=== PATIENT | female | born 1935 | race Caucasian/White ===

== ENCOUNTER 2019-03-11 05:51 | Inpatient (IN) ==
[~2019-03-11 05:51] MED LIST: LIDOCAINE W/ SODIUM BICARB 0.5 ML SYR ONE; Lactated Ringers 1,000 ML PRIMARY IV ONE; ceFAZolin Inj 2gm (Premix) 2 GM/50 ML BAG IV ONE
[2019-03-11] MEDS ORDERED: Vancomycin 1 gm (Premix) 1 GM/200 ML PIGGYBACK IV ONE ×2 (05:53→06:00)
[2019-03-11] MEDS ORDERED: Nasal Sanitizer POPSWAB ampule 3 AMP (Nozin) PREOP DOSE ENOS SCH (06:00)
[2019-03-11] MEDS ORDERED: ceFAZolin Inj 2gm (Premix) 2 GM/50 ML BAG IV ONE (06:00)
[2019-03-11] MEDS ORDERED: Vancomycin-PHA to Dose IV PRN ×2 (06:00→19:20)
[2019-03-11] MEDS ORDERED: LIDOCAINE W/ SODIUM BICARB 0.5 ML SYR SUBD ONE (06:00)
[2019-03-11] MEDS ORDERED: Lactated Ringers 1,000 ML PRIMARY IV ONE ×2 (06:00→18:12)
[2019-03-11 06:19] LABS: BILIRUBIN,URINE NEGATIVE (NEG); CLARITY,URINE CLEAR (CLEAR); COLOR,URINE YELLOW (Y); GLUCOSE, URINE (UA) NEGATIVE (NEG); OCCULT BLOOD,URINE NEGATIVE (NEG); PH,URINE 5.5 (5.0-8.5); PROTEIN,URINE NEGATIVE (NEG); UROBILINOGEN,URINE 0.2 EU/dL (0.2)
[2019-03-11 06:20] LABS: URINE SAMPLE TYPE CLEAN CATCH URINE
[2019-03-11] MEDS ORDERED: BUPivacaine Inj 0.25% PF - 10ml vial ONE (06:55)
[2019-03-11] MEDS ORDERED: Sodium Chloride 0.9% vial 40 ML ONE (06:55)
[2019-03-11] MEDS ORDERED: BUPIVACAINE 0.25% W/ EPI - 10 ML VIAL ONE (06:55)
[2019-03-11] MEDS ORDERED: BACITRACIN 50,000 UNIT VIAL IRRIG ONE ×2 (06:56→14:05)
[2019-03-11] MEDS ORDERED: Vancomycin Inj 1gm vial ONE (06:56)
[2019-03-11] MEDS ORDERED: Gentamicin Inj 40 MG/ML VIAL ONE (06:56)
[2019-03-11] MEDS ORDERED: BUPivacaine Liposome/PF (Exparel) Inj 20ml vial INFIL ONE (06:56)
[2019-03-11] MEDS ORDERED: Hetastarch 6% + NS 1,000 ML IV ONE (07:26)
[2019-03-11] MEDS ORDERED: HYDROmorphone 2 MG/1 ML ONE ×2 (07:31→09:21)
[2019-03-11] MEDS ORDERED: SUCCINYLCHOLINE CHLORIDE 20 MG/1 ML - 10 ML ONE (07:36)
[2019-03-11] MEDS ORDERED: ROCURONIUM 10 MG/1 ML - 5 ML VIAL IVP ONE (07:36)
[2019-03-11] MEDS ORDERED: Sodium Chloride 0.9% 500 ML ONE ×2 (07:49→15:11)
[2019-03-11] MEDS ORDERED: HEPARIN 5000 UNIT/1 ML ONE (07:49)
[2019-03-11] MEDS ORDERED: METOPROLOL TARTRATE 5 MG/5 ML VIAL ONE (08:46)
[2019-03-11] MEDS ORDERED: LIDOCAINE HCL 2 % 10 ML JELLY URO-JECT TOPICAL PRN (09:52)
[2019-03-11] MEDS ORDERED: PROPOFOL 10 MG/1 ML (200 MG/20 ML) VIAL IV ONE (10:02)
[2019-03-11] MEDS ORDERED: Sodium Chloride 0.9% vial 30 ML ONE (14:05)
[2019-03-11 15:41] LABS: ABG BASE EXCESS -5 MMOL/L (-2-2); ABG OXYGEN SATURATION 100 % (90-100); ABG PCO2 26 MMHG (34-38); ABG PH 7.47 (7.35-7.45); ABG PO2 212 MMHG (65-75)
[2019-03-11 15:45] LABS: COLLECTION SITE R ARTERIAL LINE
[2019-03-11] MEDS ORDERED: Prochlorperazine Edisylate Inj 10mg/2ml vial IVP PRN ×2 (18:18→19:20)
[2019-03-11] MEDS ORDERED: LIDOCAINE W/ SODIUM BICARB 0.5 ML SYR SUBD PRN (18:18)
[2019-03-11 18:34] LABS: Hematocrit [HCT] 31.6 % (37.0-47.0)
[2019-03-11] MEDS ORDERED: fentaNYL Inj 100 MCG/2 ML VIAL ONE (18:46)
[2019-03-11] MEDS: fentaNYL Inj 100 MCG/2 ML VIAL IVP PRN ×2 (18:46→19:04)
[2019-03-11 18:48] LABS: BLOOD UREA NITROGEN 14 mg/dL (7-22); BUN/CREATININE RATIO 23.33 (6-20)
[2019-03-11] MEDS ORDERED: PROMETHAZINE 25 MG/1 ML VIAL IM PRN (19:20)
[2019-03-11] MEDS ORDERED: Ondansetron ODT Tab 4 MG TAB PO PRN (19:20)
[2019-03-11] MEDS ORDERED: MAGNESIUM CITRATE 296 ML SOLUTION PO PRN (19:20)
[2019-03-11] MEDS ORDERED: DIAZEPAM 5 MG TABLET PO PRN (19:20)
[2019-03-11] MEDS ORDERED: Fleet Enema 133ml RECTAL PRN (19:20)
[2019-03-11] MEDS ORDERED: HYDROcodone-APAP 5 MG -325 MG TABLET PO PRN (19:20)
[2019-03-11] MEDS ORDERED: DIAZEPAM 10 MG/2 ML (5 MG/1 ML) CARPUJECT IVP PRN (19:20)
[2019-03-11] MEDS ORDERED: DOCUSATE 100 MG CAPSULE PO PRN (19:20)
[2019-03-11] MEDS ORDERED: HYDROcodone-APAP 10 MG-325 MG TABLET PO PRN (19:20)
[2019-03-11] MEDS ORDERED: BISACODYL 5 MG TABLET PO PRN (19:20)
[2019-03-11] MEDS ORDERED: MAGNESIUM 400 MG/5 ML - 30 ML (MILK OF MAGNESIA) PO PRN (19:20)
[2019-03-11] MEDS ORDERED: ONDANSETRON 4 MG/2 ML VIAL IVP PRN (19:20)
[2019-03-11] MEDS: ceFAZolin Inj 2gm (Premix) 2 GM/50 ML BAG IV SCH (19:38)
[2019-03-11] MEDS: MORPHINE SULFATE 2 MG/1 ML IVP PRN (19:39)
[2019-03-11] MEDS ORDERED: Vancomycin 1 gm (Premix) 1 GM/200 ML PIGGYBACK IV SCH (20:00)
[2019-03-11] MEDS ORDERED: DOCUSATE 100 MG CAPSULE PO SCH (21:00)
[2019-03-11] MEDS: HYDROcodone-APAP 7.5 MG-325 MG TABLET PO PRN (21:06)
[2019-03-12] MEDS: ceFAZolin Inj 2gm (Premix) 2 GM/50 ML BAG IV SCH ×2 (02:49→11:55)
[2019-03-12] MEDS: MORPHINE SULFATE 2 MG/1 ML IVP PRN (04:46)
[2019-03-12 05:20] LABS: BASOPHILS # (AUTO) 0 10*3/UL; BASOPHILS % (AUTO) 0 % (0-1); EOSINOPHILS # (AUTO) 0 10*3/UL; EOSINOPHILS % (AUTO) 0 % (0-8); Hematocrit [HCT] 26.5 % (37.0-47.0); Hemoglobin [HGB] 9.3 g/dL (12.0-16.0); LYMPHOCYTES # (AUTO) 1.61 10*3/uL; MEAN CORPUSCULAR HGB CONC 35.1 g/dL (33-37); MEAN CORPUSCULAR VOLUME 89.8 FL (81-99); MEAN PLATELET VOLUME 10.1 FL (7.4-12.2); MONOCYTES # (AUTO) 1.05 10*3/UL (0.3-0.8); MONOCYTES % (AUTO) 11.1 % (5-15); NEUTROPHILS # (AUTO) 6.78 10*3/UL; NEUTROPHILS % (AUTO) 71.6 % (50-80); RED BLOOD COUNT 2.95 10^6/uL (4.20-5.40)
[2019-03-12 05:26] LABS: PLATELET MORPHOLOGY COMMENT NORMAL MORPHOLOGY (NORM); RBC MORPHOLOGY COMMENT NORMAL MORPHOLOGY (NORM); WBC MORPHOLOGY COMMENT NORMAL MORPHOLOGY (NORM)
[2019-03-12 05:33] LABS: BLOOD UREA NITROGEN 15 mg/dL (7-22)
[2019-03-12] MEDS ORDERED: PANTOPRAZOLE 40 MG TABLET PO SCH (07:00)
[2019-03-12] MEDS: HYDROcodone-APAP 7.5 MG-325 MG TABLET PO PRN ×3 (07:31→17:48)
[2019-03-12] MEDS ORDERED: LOSARTAN 50 MG TABLET PO SCH (09:00)
[2019-03-12] MEDS ORDERED: Sertraline Tab 50 MG TAB PO SCH (09:00)
[2019-03-12] MEDS ORDERED: Vancomycin 1 gm (Premix) 1 GM/200 ML PIGGYBACK IV SCH (09:00)
[2019-03-12] MEDS ORDERED: HYDROCHLOROTHIAZIDE 25 MG TABLET PO SCH (09:00)
[2019-03-12] MEDS ORDERED: Rosuvastatin Tab 20 MG TAB PO SCH (09:00)
[2019-03-12] MEDS: CYCLOBENZAPRINE 10 MG TABLET PO SCH ×3 (10:46→22:00)
[2019-03-12] MEDS ORDERED: DIAZEPAM 5 MG TABLET PO PRN (16:36)
[2019-03-12] MEDS ORDERED: MORPHINE SULFATE 2 MG/1 ML IVP PRN (16:36)
[2019-03-12] MEDS ORDERED: Ondansetron ODT Tab 4 MG TAB PO PRN (16:36)
[2019-03-12] MEDS ORDERED: Prochlorperazine Edisylate Inj 10mg/2ml vial IVP PRN (16:36)
[2019-03-12] MEDS ORDERED: HYDROcodone-APAP 5 MG -325 MG TABLET PO PRN (16:36)
[2019-03-12] MEDS ORDERED: DOCUSATE 100 MG CAPSULE PO PRN (16:36)
[2019-03-12] MEDS ORDERED: BISACODYL 5 MG TABLET PO PRN (16:36)
[2019-03-12] MEDS ORDERED: Fleet Enema 133ml RECTAL PRN (16:36)
[2019-03-12] MEDS ORDERED: ONDANSETRON 4 MG/2 ML VIAL IVP PRN (16:36)
[2019-03-12] MEDS ORDERED: PROMETHAZINE 25 MG/1 ML VIAL IM PRN (16:36)
[2019-03-12] MEDS ORDERED: MAGNESIUM CITRATE 296 ML SOLUTION PO PRN (16:36)
[2019-03-12] MEDS ORDERED: DIAZEPAM 10 MG/2 ML (5 MG/1 ML) CARPUJECT IVP PRN (16:36)
[2019-03-12] MEDS ORDERED: MAGNESIUM 400 MG/5 ML - 30 ML (MILK OF MAGNESIA) PO PRN (16:36)
[2019-03-12] MEDS: HYDROcodone-APAP 10 MG-325 MG TABLET PO PRN (21:59)
[2019-03-12] MEDS: DOCUSATE 100 MG CAPSULE PO SCH (22:00)
[2019-03-13] MEDS: HYDROcodone-APAP 10 MG-325 MG TABLET PO PRN ×2 (04:03→21:21)
[2019-03-13 04:54] LABS: BASOPHILS # (AUTO) 0.03 10*3/UL; BASOPHILS % (AUTO) 0.3 % (0-1); EOSINOPHILS # (AUTO) 0.08 10*3/UL; EOSINOPHILS % (AUTO) 0.7 % (0-8); Hematocrit [HCT] 24.9 % (37.0-47.0); Hemoglobin [HGB] 8.4 g/dL (12.0-16.0); LYMPHOCYTES # (AUTO) 2.03 10*3/uL; MEAN CORPUSCULAR HGB CONC 33.7 g/dL (33-37); MEAN CORPUSCULAR VOLUME 93.3 FL (81-99); MONOCYTES # (AUTO) 1.16 10*3/UL (0.3-0.8); MONOCYTES % (AUTO) 10.6 % (5-15); NEUTROPHILS # (AUTO) 7.58 10*3/UL; NEUTROPHILS % (AUTO) 69.3 % (50-80); RED BLOOD COUNT 2.67 10^6/uL (4.20-5.40)
[2019-03-13 04:58] LABS: PLATELET MORPHOLOGY COMMENT NORMAL MORPHOLOGY (NORM); RBC MORPHOLOGY COMMENT NORMAL MORPHOLOGY (NORM); WBC MORPHOLOGY COMMENT NORMAL MORPHOLOGY (NORM)
[2019-03-13 05:04] LABS: BLOOD UREA NITROGEN 12 mg/dL (7-22)
[2019-03-13] MEDS ORDERED: BETAMET ACET/BETAMET NA PH 6 MG/1 ML - 5 ML ONE (07:37)
[2019-03-13] MEDS: Rosuvastatin Tab 20 MG TAB PO SCH (09:09)
[2019-03-13] MEDS: CYCLOBENZAPRINE 10 MG TABLET PO SCH ×3 (09:09→21:21)
[2019-03-13] MEDS: PANTOPRAZOLE 40 MG TABLET PO SCH (09:10)
[2019-03-13] MEDS: HYDROcodone-APAP 7.5 MG-325 MG TABLET PO PRN ×3 (09:11→18:16)
[2019-03-13] MEDS: Sertraline Tab 50 MG TAB PO SCH (09:12)
[2019-03-13] MEDS: FERROUS GLUCONATE 324 MG TABLET PO SCH (13:12)
[2019-03-13] MEDS: Multivitamin Tab 1 TAB PO SCH (13:12)
[2019-03-13] MEDS: DOCUSATE 100 MG CAPSULE PO SCH (21:20)
[2019-03-14] MEDS: HYDROcodone-APAP 10 MG-325 MG TABLET PO PRN ×2 (03:41→21:03)
[2019-03-14 04:52] LABS: BASOPHILS # (AUTO) 0.04 10*3/UL; BASOPHILS % (AUTO) 0.4 % (0-1); EOSINOPHILS # (AUTO) 0.21 10*3/UL; EOSINOPHILS % (AUTO) 2.4 % (0-8); Hematocrit [HCT] 22.6 % (37.0-47.0); Hemoglobin [HGB] 7.5 g/dL (12.0-16.0); LYMPHOCYTES # (AUTO) 2.01 10*3/uL; MEAN CORPUSCULAR HGB CONC 33.2 g/dL (33-37); MEAN CORPUSCULAR VOLUME 95.4 FL (81-99); MONOCYTES # (AUTO) 0.74 10*3/UL (0.3-0.8); MONOCYTES % (AUTO) 8.3 % (5-15); NEUTROPHILS # (AUTO) 5.88 10*3/UL; NEUTROPHILS % (AUTO) 66.1 % (50-80); RED BLOOD COUNT 2.37 10^6/uL (4.20-5.40)
[2019-03-14 05:01] LABS: PLATELET MORPHOLOGY COMMENT NORMAL MORPHOLOGY (NORM); RBC MORPHOLOGY COMMENT NORMAL MORPHOLOGY (NORM); WBC MORPHOLOGY COMMENT NORMAL MORPHOLOGY (NORM)
[2019-03-14 05:06] LABS: BLOOD UREA NITROGEN 12 mg/dL (7-22); SERUM ALBUMIN 2.6 g/dL (3.5-4.8)
[2019-03-14] MEDS: HYDROcodone-APAP 7.5 MG-325 MG TABLET PO PRN ×3 (07:47→17:52)
[2019-03-14] MEDS: Rosuvastatin Tab 20 MG TAB PO SCH (09:48)
[2019-03-14] MEDS: CYCLOBENZAPRINE 10 MG TABLET PO SCH ×3 (09:49→21:03)
[2019-03-14] MEDS: Sertraline Tab 50 MG TAB PO SCH (09:49)
[2019-03-14] MEDS: POTASSIUM CHLORIDE 20 MEQ TAB PO SCH ×2 (09:49→16:00)
[2019-03-14] MEDS: PANTOPRAZOLE 40 MG TABLET PO SCH (09:49)
[2019-03-14] MEDS: FERROUS GLUCONATE 324 MG TABLET PO SCH (09:49)
[2019-03-14] MEDS: Multivitamin Tab 1 TAB PO SCH (09:49)
[2019-03-14] MEDS: DOCUSATE 100 MG CAPSULE PO SCH (21:04)
[2019-03-15 04:38] LABS: Hematocrit [HCT] 22.4 % (37.0-47.0); Hemoglobin [HGB] 7.4 g/dL (12.0-16.0); MEAN CORPUSCULAR VOLUME 95.7 FL (81-99); MEAN PLATELET VOLUME 9.5 FL (7.4-12.2); RED BLOOD COUNT 2.34 10^6/uL (4.20-5.40)
[2019-03-15 04:47] LABS: BLOOD UREA NITROGEN 12 mg/dL (7-22); SERUM ALBUMIN 2.7 g/dL (3.5-4.8)
[2019-03-15] MEDS: PANTOPRAZOLE 40 MG TABLET PO SCH (06:52)
[2019-03-15] MEDS: HYDROcodone-APAP 10 MG-325 MG TABLET PO PRN ×4 (08:34→21:16)
[2019-03-15] MEDS: FERROUS GLUCONATE 324 MG TABLET PO SCH (08:35)
[2019-03-15] MEDS: Rosuvastatin Tab 20 MG TAB PO SCH (08:35)
[2019-03-15] MEDS: Multivitamin Tab 1 TAB PO SCH (08:35)
[2019-03-15] MEDS: CYCLOBENZAPRINE 10 MG TABLET PO SCH ×3 (08:35→21:13)
[2019-03-15] MEDS: Sertraline Tab 50 MG TAB PO SCH (08:35)
[2019-03-15] MEDS ORDERED: CYANOCOBALAMIN 1000 MCG/1 ML VIAL IM ONE (09:59)
[2019-03-15] MEDS: FOLIC ACID 1 MG TABLET PO SCH (11:03)
[2019-03-15] MEDS: DOCUSATE 100 MG CAPSULE PO SCH (21:12)
[2019-03-16 01:27] VITALS: RESP 20
[2019-03-16] MEDS: HYDROcodone-APAP 7.5 MG-325 MG TABLET PO PRN ×3 (05:57→15:09)
[2019-03-16] MEDS: PANTOPRAZOLE 40 MG TABLET PO SCH (06:00)
[2019-03-16 07:20] LABS: Hematocrit [HCT] 24.4 % (37.0-47.0); MEAN CORPUSCULAR HGB CONC 32.8 g/dL (33-37); MEAN CORPUSCULAR VOLUME 96.4 FL (81-99); RED BLOOD COUNT 2.53 10^6/uL (4.20-5.40)
[2019-03-16] MEDS: Multivitamin Tab 1 TAB PO SCH (10:05)
[2019-03-16] MEDS: Rosuvastatin Tab 20 MG TAB PO SCH (10:06)
[2019-03-16] MEDS: CYCLOBENZAPRINE 10 MG TABLET PO SCH ×2 (10:06→15:09)
[2019-03-16] MEDS: FERROUS GLUCONATE 324 MG TABLET PO SCH (10:06)
[2019-03-16] MEDS: FOLIC ACID 1 MG TABLET PO SCH (10:06)
[2019-03-16] MEDS: Sertraline Tab 50 MG TAB PO SCH (10:07)
[2019-03-16 16:10] VITALS: BP 129/64; O2SAT 95
[2019-03-16 16:12] VITALS: TEMP 99.2
== END 2019-03-16 17:56 | disposition home or self-care (01) | DRG 455 ==
LOC: MED/SURG 05:51 → ICU 19:25 → MED/SURG 03-12 16:28
PROVIDERS: ADMIT Neurological Surgery; ATTEND Neurological Surgery

== ENCOUNTER 2019-04-15 11:59 | Inpatient (IN) ==
[~2019-04-15 11:59] MED LIST changes: +LIDOCAINE W/ SODIUM BICARB 0.5 ML SYR SUBD ONE; +Nasal Sanitizer POPSWAB ampule 3 AMP (Nozin) PREOP DOSE ENOS SCH
[2019-04-15] MEDS ORDERED: ceFAZolin Inj 2gm (Premix) 2 GM/50 ML BAG IV ONE (13:20)
[2019-04-15] MEDS ORDERED: Vancomycin 1 gm (Premix) 1 GM/200 ML PIGGYBACK IV ONE (13:21)
[2019-04-15] MEDS ORDERED: Sodium Chloride 0.9% vial 0 ML ONE (16:25)
[2019-04-15] MEDS ORDERED: Gentamicin Inj 40 MG/ML VIAL ONE (16:26)
[2019-04-15] MEDS ORDERED: Vancomycin Inj 1gm vial ONE (16:26)
[2019-04-15] MEDS ORDERED: Sodium Chloride 0.9% vial 30 ML ONE (16:27)
[2019-04-15] MEDS ORDERED: BACITRACIN 50,000 UNIT VIAL IRRIG ONE (16:27)
[2019-04-15] MEDS ORDERED: fentaNYL Inj 250 MCG/5 ML VIAL IVP ONE (16:49)
[2019-04-15] MEDS ORDERED: fentaNYL Inj 100 MCG/2 ML VIAL ONE ×2 (16:50→21:19)
[2019-04-15] MEDS ORDERED: fentaNYL Inj 250 MCG/5 ML VIAL IVP PRN (17:03)
[2019-04-15] MEDS ORDERED: LIDOCAINE HCL 2 % 10 ML JELLY URO-JECT TOPICAL ONE (17:09)
[2019-04-15] MEDS ORDERED: BUPIVACAINE 0.25% W/ EPI - 10 ML VIAL ONE (17:09)
[2019-04-15] MEDS ORDERED: LIDOCAINE HCL 2 % 10 ML JELLY URO-JECT TOPICAL PRN (17:19)
[2019-04-15 17:24] LABS: BASOPHILS # (AUTO) 0.06 10*3/UL; BASOPHILS % (AUTO) 1.1 % (0-1); EOSINOPHILS # (AUTO) 0.19 10*3/UL; EOSINOPHILS % (AUTO) 3.4 % (0-8); Hematocrit [HCT] 31.3 % (37.0-47.0); Hemoglobin [HGB] 10.2 g/dL (12.0-16.0); LYMPHOCYTES # (AUTO) 2.02 10*3/uL; MEAN CORPUSCULAR HGB CONC 32.6 g/dL (33-37); MEAN CORPUSCULAR VOLUME 90.5 FL (81-99); MEAN PLATELET VOLUME 9.6 FL (7.4-12.2); MONOCYTES # (AUTO) 0.57 10*3/UL (0.3-0.8); MONOCYTES % (AUTO) 10.3 % (5-15); NEUTROPHILS # (AUTO) 2.67 10*3/UL; NEUTROPHILS % (AUTO) 48.4 % (50-80); RED BLOOD COUNT 3.46 10^6/uL (4.20-5.40)
[2019-04-15 17:25] LABS: PLATELET MORPHOLOGY COMMENT NORMAL MORPHOLOGY (NORM); RBC MORPHOLOGY COMMENT NORMAL MORPHOLOGY (NORM); WBC MORPHOLOGY COMMENT NORMAL MORPHOLOGY (NORM)
[2019-04-15] MEDS ORDERED: fentaNYL Inj 100 MCG/2 ML VIAL IVP PRN (17:32)
[2019-04-15] MEDS ORDERED: fentaNYL Inj 250 MCG/5 ML VIAL ONE (18:43)
[2019-04-15] MEDS ORDERED: PROPOFOL 10 MG/1 ML (200 MG/20 ML) VIAL IV ONE ×2 (18:55→20:32)
[2019-04-15] MEDS ORDERED: Vancomycin 1 gm (Premix) 1 GM/200 ML PIGGYBACK IV SCH (19:30)
[2019-04-15] MEDS: HYDROmorphone 2 MG/1 ML IVP PRN ×4 (20:20→22:10)
[2019-04-15] MEDS ORDERED: ONDANSETRON 4 MG/2 ML VIAL IVP PRN ×2 (21:00→23:06)
[2019-04-15] MEDS ORDERED: Prochlorperazine Edisylate Inj 10mg/2ml vial IVP PRN ×2 (21:00→23:06)
[2019-04-15] MEDS ORDERED: LIDOCAINE W/ SODIUM BICARB 0.5 ML SYR SUBD PRN (21:00)
[2019-04-15] MEDS: fentaNYL Inj 100 MCG/2 ML VIAL IVP PRN ×2 (21:19→21:32)
[2019-04-15] MEDS ORDERED: HYDROmorphone 2 MG/1 ML ONE (21:46)
[2019-04-15] MEDS ORDERED: Lactated Ringers 1,000 ML PRIMARY IV ONE (22:20)
[2019-04-15] MEDS ORDERED: Ondansetron ODT Tab 4 MG TAB PO PRN (23:06)
[2019-04-15] MEDS ORDERED: MAGNESIUM CITRATE 296 ML SOLUTION PO PRN (23:06)
[2019-04-15] MEDS ORDERED: oxyCODONE/APAP 10/325 Tab 1 EACH TAB PO PRN (23:06)
[2019-04-15] MEDS ORDERED: MORPHINE SULFATE 2 MG/1 ML IVP PRN (23:06)
[2019-04-15] MEDS ORDERED: BISACODYL 5 MG TABLET PO PRN (23:06)
[2019-04-15] MEDS ORDERED: HYDROcodone-APAP 10 MG-325 MG TABLET PO PRN (23:06)
[2019-04-15] MEDS ORDERED: DOCUSATE 100 MG CAPSULE PO PRN (23:06)
[2019-04-15] MEDS ORDERED: Fleet Enema 133ml RECTAL PRN (23:06)
[2019-04-15] MEDS ORDERED: Vancomycin-PHA to Dose IV PRN (23:06)
[2019-04-15] MEDS ORDERED: DIAZEPAM 10 MG/2 ML (5 MG/1 ML) CARPUJECT IVP PRN (23:06)
[2019-04-15] MEDS ORDERED: MAGNESIUM 400 MG/5 ML - 30 ML (MILK OF MAGNESIA) PO PRN (23:06)
[2019-04-15] MEDS ORDERED: PROMETHAZINE 25 MG/1 ML VIAL IM PRN (23:06)
[2019-04-15] MEDS: oxyCODONE-ACETAMINOPHEN 5-325 TAB PO PRN (23:43)
[2019-04-15] MEDS: ceFAZolin Inj 2gm (Premix) 2 GM/50 ML BAG IV SCH (23:43)
[2019-04-16] MEDS: DOCUSATE 100 MG CAPSULE PO SCH ×2 (00:32→20:14)
[2019-04-16 05:01] LABS: BASOPHILS # (AUTO) 0.05 10*3/UL; BASOPHILS % (AUTO) 0.7 % (0-1); EOSINOPHILS # (AUTO) 0.05 10*3/UL; EOSINOPHILS % (AUTO) 0.7 % (0-8); Hematocrit [HCT] 28.8 % (37.0-47.0); MEAN CORPUSCULAR HGB CONC 31.3 g/dL (33-37); MEAN CORPUSCULAR VOLUME 93.2 FL (81-99); MEAN PLATELET VOLUME 9.6 FL (7.4-12.2); MONOCYTES % (AUTO) 10.3 % (5-15); NEUTROPHILS % (AUTO) 61.8 % (50-80); RED BLOOD COUNT 3.09 10^6/uL (4.20-5.40)
[2019-04-16 05:35] LABS: PLATELET MORPHOLOGY COMMENT NORMAL MORPHOLOGY (NORM); RBC MORPHOLOGY COMMENT NORMAL MORPHOLOGY (NORM); WBC MORPHOLOGY COMMENT NORMAL MORPHOLOGY (NORM)
[2019-04-16 05:43] LABS: BLOOD UREA NITROGEN 7 mg/dL (7-22)
[2019-04-16] MEDS: PANTOPRAZOLE 40 MG TABLET PO SCH (07:00)
[2019-04-16] MEDS: oxyCODONE-ACETAMINOPHEN 5-325 TAB PO PRN (07:01)
[2019-04-16] MEDS: CALCIUM CARBONATE 500 MG (TUMS) CHEWABLE TABLET PO SCH (08:46)
[2019-04-16] MEDS: Sertraline Tab 50 MG TAB PO SCH (08:46)
[2019-04-16] MEDS: Rosuvastatin Tab 20 MG TAB PO SCH (08:46)
[2019-04-16] MEDS: Potassium Chloride Tab 10 MEQ TAB PO SCH (08:50)
[2019-04-16] MEDS ORDERED: HYDROCHLOROTHIAZIDE 25 MG TABLET PO SCH (09:00)
[2019-04-16] MEDS ORDERED: LOSARTAN 50 MG TABLET PO SCH (09:00)
[2019-04-16] MEDS: ceFAZolin Inj 2gm (Premix) 2 GM/50 ML BAG IV SCH ×3 (09:06→23:51)
[2019-04-16] MEDS: oxyCODONE/APAP 7.5/325 Tab 1 TAB TAB PO PRN ×4 (10:56→23:51)
[2019-04-16] MEDS: HEPARIN 500 UNIT/5 ML SYRINGE FOR CENTRAL LINE IVP PRN ×2 (16:53→19:12)
[2019-04-16] MEDS ORDERED: Vancomycin 1 gm (Premix) 1 GM/200 ML PIGGYBACK IV SCH ×2 (19:00)
[2019-04-17] MEDS: HEPARIN 500 UNIT/5 ML SYRINGE FOR CENTRAL LINE IVP PRN ×3 (01:05→23:47)
[2019-04-17] MEDS: oxyCODONE/APAP 7.5/325 Tab 1 TAB TAB PO PRN ×4 (04:01→23:46)
[2019-04-17 04:40] LABS: BASOPHILS # (AUTO) 0.06 10*3/UL; EOSINOPHILS # (AUTO) 0.23 10*3/UL; EOSINOPHILS % (AUTO) 3.7 % (0-8); Hematocrit [HCT] 27.8 % (37.0-47.0); LYMPHOCYTES # (AUTO) 1.72 10*3/uL; MEAN CORPUSCULAR HGB CONC 32.4 g/dL (33-37); MEAN CORPUSCULAR VOLUME 93.6 FL (81-99); MEAN PLATELET VOLUME 9.7 FL (7.4-12.2); MONOCYTES # (AUTO) 0.72 10*3/UL (0.3-0.8); MONOCYTES % (AUTO) 11.7 % (5-15); NEUTROPHILS # (AUTO) 3.37 10*3/UL; NEUTROPHILS % (AUTO) 54.9 % (50-80); RED BLOOD COUNT 2.97 10^6/uL (4.20-5.40)
[2019-04-17 04:47] LABS: PLATELET MORPHOLOGY COMMENT NORMAL MORPHOLOGY (NORM); RBC MORPHOLOGY COMMENT NORMAL MORPHOLOGY (NORM); WBC MORPHOLOGY COMMENT NORMAL MORPHOLOGY (NORM)
[2019-04-17 04:53] LABS: BLOOD UREA NITROGEN 7 mg/dL (7-22)
[2019-04-17] MEDS: PANTOPRAZOLE 40 MG TABLET PO SCH (07:30)
[2019-04-17] MEDS: ceFAZolin Inj 2gm (Premix) 2 GM/50 ML BAG IV SCH ×3 (07:31→23:47)
[2019-04-17] MEDS: Rosuvastatin Tab 20 MG TAB PO SCH (09:07)
[2019-04-17] MEDS: Potassium Chloride Tab 10 MEQ TAB PO SCH (09:07)
[2019-04-17] MEDS: Sertraline Tab 50 MG TAB PO SCH (09:07)
[2019-04-17] MEDS: CALCIUM CARBONATE 500 MG (TUMS) CHEWABLE TABLET PO SCH (09:11)
[2019-04-17] MEDS: DIAZEPAM 5 MG TABLET PO PRN (19:55)
[2019-04-17] MEDS: DOCUSATE 100 MG CAPSULE PO SCH (20:11)
[2019-04-18] MEDS: oxyCODONE/APAP 7.5/325 Tab 1 TAB TAB PO PRN ×2 (04:24→19:10)
[2019-04-18] MEDS: ceFAZolin Inj 2gm (Premix) 2 GM/50 ML BAG IV SCH ×3 (07:42→23:29)
[2019-04-18] MEDS: PANTOPRAZOLE 40 MG TABLET PO SCH (07:42)
[2019-04-18] MEDS: CALCIUM CARBONATE 500 MG (TUMS) CHEWABLE TABLET PO SCH (08:00)
[2019-04-18] MEDS: Sertraline Tab 50 MG TAB PO SCH (08:43)
[2019-04-18] MEDS: Potassium Chloride Tab 10 MEQ TAB PO SCH (08:43)
[2019-04-18] MEDS: LOSARTAN 50 MG TABLET PO SCH (08:44)
[2019-04-18] MEDS: HYDROCHLOROTHIAZIDE 25 MG TABLET PO SCH (08:44)
[2019-04-18] MEDS: Rosuvastatin Tab 20 MG TAB PO SCH (08:44)
[2019-04-18] MEDS: HEPARIN 500 UNIT/5 ML SYRINGE FOR CENTRAL LINE IVP PRN (08:45)
[2019-04-18] MEDS: DIAZEPAM 5 MG TABLET PO PRN (19:13)
[2019-04-18] MEDS: DOCUSATE 100 MG CAPSULE PO SCH (21:24)
[2019-04-19] MEDS: HEPARIN 500 UNIT/5 ML SYRINGE FOR CENTRAL LINE IVP PRN ×3 (00:31→23:34)
[2019-04-19] MEDS: PANTOPRAZOLE 40 MG TABLET PO SCH (06:45)
[2019-04-19] MEDS: Potassium Chloride Tab 10 MEQ TAB PO SCH (09:30)
[2019-04-19] MEDS: HYDROCHLOROTHIAZIDE 25 MG TABLET PO SCH (09:30)
[2019-04-19] MEDS: LOSARTAN 50 MG TABLET PO SCH (09:31)
[2019-04-19] MEDS: Sertraline Tab 50 MG TAB PO SCH (09:31)
[2019-04-19] MEDS: CALCIUM CARBONATE 500 MG (TUMS) CHEWABLE TABLET PO SCH (09:31)
[2019-04-19] MEDS: Rosuvastatin Tab 20 MG TAB PO SCH (09:31)
[2019-04-19] MEDS: ceFAZolin Inj 2gm (Premix) 2 GM/50 ML BAG IV SCH ×3 (09:32→23:34)
[2019-04-19] MEDS: oxyCODONE/APAP 7.5/325 Tab 1 TAB TAB PO PRN ×2 (14:02→19:08)
[2019-04-19] MEDS: DIAZEPAM 5 MG TABLET PO PRN (19:07)
[2019-04-19] MEDS: DOCUSATE 100 MG CAPSULE PO SCH (20:45)
[2019-04-20] MEDS: DIAZEPAM 5 MG TABLET PO PRN (00:34)
[2019-04-20] MEDS: oxyCODONE/APAP 7.5/325 Tab 1 TAB TAB PO PRN (04:12)
[2019-04-20 04:30] VITALS: RESP 18
[2019-04-20] MEDS: PANTOPRAZOLE 40 MG TABLET PO SCH (06:48)
[2019-04-20] MEDS: Rosuvastatin Tab 20 MG TAB PO SCH (08:18)
[2019-04-20] MEDS: LOSARTAN 50 MG TABLET PO SCH (08:19)
[2019-04-20] MEDS: Sertraline Tab 50 MG TAB PO SCH (08:19)
[2019-04-20] MEDS: oxyCODONE-ACETAMINOPHEN 5-325 TAB PO PRN ×2 (08:19→15:02)
[2019-04-20] MEDS: ceFAZolin Inj 2gm (Premix) 2 GM/50 ML BAG IV SCH ×2 (08:19→15:02)
[2019-04-20] MEDS: CALCIUM CARBONATE 500 MG (TUMS) CHEWABLE TABLET PO SCH (08:19)
[2019-04-20] MEDS: HEPARIN 500 UNIT/5 ML SYRINGE FOR CENTRAL LINE IVP PRN ×2 (08:19→15:03)
[2019-04-20] MEDS: Potassium Chloride Tab 10 MEQ TAB PO SCH (08:19)
[2019-04-20] MEDS: HYDROCHLOROTHIAZIDE 25 MG TABLET PO SCH (08:19)
[2019-04-20 16:03] VITALS: BP 145/87; TEMP 98.2; O2SAT 93
== END 2019-04-20 16:15 | disposition home or self-care (01) | DRG 857 ==
LOC: OPS 11:59 → EDSTATUS 18:00 → MED/SURG 22:45
PROVIDERS: ADMIT Neurological Surgery; ATTEND Neurological Surgery